=== PATIENT | female | born 1955 | race Caucasian/White ===

== ENCOUNTER 2017-02-27 02:08 | Emergency (ER) | payer OTHER ==
[~2017-02-27] VITALS: Ht 160 cm; Wt 84.8 kg
--- OUTSIDE RECORDS SUMMARY | 2017-02-27 02:33 | XMS REPORT | Continuity of Care Document ---
Author Author [facility] Organization [facility] Address Unknown Phone Unavailable Allergies Medications Problems Date Dx Coded Attending Type Code Diagnosis Diagnosed By 05/10/2014 Michelle Odom MD 845.00 05/10/2014 Michelle Odom MD 924.11 05/10/2014 Michelle Odom MD E849.8 05/10/2014 Michelle Odom MD E885.9 12/21/2014 Michelle Odom MD V72.69 01/11/2015 Quentin Yusuf MD 793.89 01/11/2015 Quentin Yusuf MD V76.12 01/13/2015 Quentin Yusuf MD 793.89 01/13/2015 Quentin Yusuf MD V76.12 02/07/2015 Quentin Yusuf MD 793.89 02/07/2015 Quentin Yusuf MD V76.12 02/21/2016 Quentin Yusuf MD Z12.31 ENCNTR SCREEN MAMMOGRAM FOR MALIGNANT NE 02/23/2016 Quentin Yusuf MD Z12.31 ENCNTR SCREEN MAMMOGRAM FOR MALIGNANT NE Procedures Results Encounters ACCT No. Visit Date/Time Discharge Status Pt. Type Provider Facility Loc./Unit Complaint [id number] 02/14/2016 07:52:00 2015 23:59:59 CLS [facility] [id number] 01/03/2015 09:34:00 2014 23:59:59 CLS [facility] [id number] 05/09/2014 10:47:00 2013 16:01:00 DIS Outpatient Michelle Odom MD [facility] [id number] 04/18/2014 10:30:00 2013 23:59:59 CLS Outpatient Michelle Odom MD [facility] [id number] 08/09/2013 13:45:00 2013 23:59:59 CLS Outpatient [id number] 03/24/2013 08:59:00 2012 23:59:59 CLS Outpatient
[2017-02-27] MEDS: ONDANSETRON 4 MG (ZOFRAN) ORAL DISSOLVE TAB SL ONE (02:42)
[2017-02-27] MEDS ORDERED: ADDERALL (02:46)
[2017-02-27] MEDS ORDERED: [UNRECOGNIZED DRUG - OTHER] (02:46)
[2017-02-27] MEDS ORDERED: POTASSIUM (02:46)
[2017-02-27] MEDS ORDERED: MAGNESIUM (02:46)
[2017-02-27] MEDS ORDERED: MULT-974 PO (02:46)
[2017-02-27] MEDS ORDERED: OMG1KC PO (02:46)
[2017-02-27 03:14] LABS: BILIRUBIN,URINE NEGATIVE (NEGATIVE); KETONES,URINE NEGATIVE (NEGATIVE); LEUKOCYTE ESTERASE ,URINE 3+ (NEGATIVE); NITRITE,URINE NEGATIVE (NEGATIVE); PH,URINE 5 (5-9); PROTEIN,URINE NEGATIVE (NEGATIVE); UROBILINOGEN,URINE NORMAL (NORMAL)
[2017-02-27] MEDS: CIPROFLOXACIN 500 MG (CIPRO) TABLET PO ONE (03:32)
[2017-02-27] MEDS: KETOROLAC 60 MG/2 ML VIAL IM ONE (03:32)
[2017-02-27] MEDS ORDERED: ONDA4TAB8 SL (03:33)
[2017-02-27] MEDS ORDERED: CIPR-225 PO (03:33)
--- NOTE | 2017-02-27 03:34 | ED Back Pain ---
General Chief Complaint: Back Problems Stated Complaint: POSS KIDNEY STONE,LEFT SIDE Nursing Triage Note: PT TO ED 6 W/ C/O LT FLANK BACK PAIN ONSET 0 THIS AM. DENIES INJURY Nursing Sepsis Screen: No Definite Risk Source of Information: Patient Exam Limitations: No Limitations History of Present Illness Time Seen by Provider: 02:14 Initial Comments This 61-year-old woman presents to the emergency room with pain in the left lower back rated as 7/10. She has been nauseated without vomiting. She denies diarrhea or constipation. Denies dysuria or hematuria. No history of renal stones. She did not feel well earlier and then could not sleep tonight due to the pain. She does have a history of kidney stones but states this pain feels somewhat different. Allergies and Home Medications Allergies Coded Allergies: Penicillins (Verified Allergy, Unknown, 02/27/17) Home Medications Ciprofloxacin HCl 500 Mg Tablet, 500 MG PO BID, #14 Prescribed by: CHU RODRIGUEZ on 02/27/17 0333 Multivitamin 1 Each Tablet, 1 EACH PO, (Reported) [place] 3 Polyunsat Fatty Acids 1,000 Mg Cap, 1,000 MG PO, (Reported) Ondansetron 4 Mg Tab.rapdis, 4 MG SL Q4H PRN for NAUSEA/VOMITING-1ST LINE, #10 Prescribed by: CHU RODRGIUEZ on 02/27/17 0333 [Adderall] , (Reported) [Hcg Diet] , (Reported) [Magnesium] , (Reported) [Potassium] , (Reported) Constitutional: no symptoms reported EENTM: no symptoms reported Respiratory: no symptoms reported Cardiovascular: no symptoms reported Gastrointestinal: no symptoms reported Genitourinary: no symptoms reported : No Musculoskeletal: see HPI Skin: no symptoms reported Psychiatric/Neurological: No Symptoms Reported Past Letdgfh-Ndklew-Zttuuq Hx Patient Social History Alcohol Use: Denies Use Recreational Drug Use: No Smoking Status: Never a Smoker Recent Foreign Travel: No Contact w/Someone Who Travel: No Recent Infectious Disease Expo: No Recent Hopitalizations: No Physical Abuse: No Sexual Abuse: No Mistreated: No Fear: No Surgeries History of Surgeries: Yes Surgeries: Section, Hysterectomy, Orthopedic (Anterior cruciate ligament repair) Respiratory History of Respiratory Disorde: No Cardiovascular History of Cardiac Disorders: No Neurological History of Neurological Disord: No Reproductive System : No Genitourinary History of Genitourinary Disor: Yes Genitourinary Disorders: Kidney Stones Gastrointestinal History of Gastrointestinal Di: No Musculoskeletal History of Musculoskeletal Dis: No Endocrine History of Endocrine Disorders: No HEENT History of HEENT Disorders: No Cancer History of Cancer: No Psychosocial History of Psychiatric Problem: No Suicide Risk Score: 0 Integumentary History of Skin or Integumenta: No Blood Transfusions History of Blood Disorders: No Physical Exam Vital Signs Vital Sign - Last 12Hours 02/27/17 02:24 Temp 96.6 Pulse 91 Resp 20 B/P (MAP) 157/80 Pulse Ox 98 O2 Delivery Room Air Capillary Refill : Less Than 3 Seconds General Appearance: No Apparent Distress, WD/WN HEENT: Normal ENT Inspection Neck: Normal Inspection Cardiovascular: Regular Rate, Rhythm, No Edema, No Murmur Respiratory: Lungs Clear, Normal Breath Sounds, No Accessory Muscle Use, No Respiratory Distress Gastrointestinal: Normal Bowel Sounds, Non Tender, Soft Back: Normal Inspection, CVA Tenderness (L), Other (Mild tenderness in the paravertebral muscles on the left near the upper lumbar spine) Extremity: Normal Inspection, No Pedal Edema Neurologic/Psychiatric: Alert, Oriented x3, No Motor/Sensory Deficits, Normal Mood/Affect, commissioning manager II-XII Norm as Tested Skin: Normal Color, Warm/Dry Progress/Results/Core Measures Results/Orders Lab Results Laboratory Tests Test 02/27/17 03:06 Range/Units Urine Color YELLOW Urine Clarity SLIGHTLY CLOUDY Urine pH 5 5-9 Urine Specific [place] 1.020 1.016-1.022 Urine Protein NEGATIVE NEGATIVE Urine Glucose (UA) NEGATIVE NEGATIVE Urine Ketones NEGATIVE NEGATIVE Urine Nitrite NEGATIVE NEGATIVE Urine Bilirubin NEGATIVE NEGATIVE Urine Urobilinogen NORMAL NORMAL MG/DL Urine Leukocyte Esterase 3+ H NEGATIVE Urine RBC (Auto) 1+ H NEGATIVE Urine RBC RARE /HPF Urine WBC 5-10 H /HPF Urine Squamous Epithelial Cells 10-25 H /HPF Urine Crystals NONE /LPF Urine Bacteria MODERATE H /HPF Urine Casts NONE /LPF Urine Mucus MODERATE H /LPF Urine Culture Indicated YES My Orders Orders - CHU ENRIQUEZ MD Ua Culture If Indicated (02/27/17 02:14) Ondansetron Oral Dissolve Tab (Zofran (02/27/17 02:45) Urine Culture (02/27/17 03:06) Ketorolac Injection (Toradol Injection) (02/27/17 03:30) Ciprofloxacin Tablet (Cipro Tablet) (02/27/17 03:30) Medications Given in ED Current Medications Medications Dose Ordered Sig/Vishal Route Start Time Stop Time Status Last Admin Dose Admin Ciprofloxacin 500 mg ONCE ONCE PO 02/27/17 03:30 02/27/17 03:31 DC 02/27/17 03:32 500 MG Ketorolac Tromethamine 60 mg ONCE ONCE IM 02/27/17 03:30 02/27/17 03:31 DC 02/27/17 03:32 60 MG Ondansetron HCl 8 mg ONCE ONCE SL 02/27/17 02:45 02/27/17 02:46 DC 02/27/17 02:42 8 MG Vital Signs/I&O Vital Sign - Last 12Hours 02/27/17 02/27/17 02:24 04:01 Temp 96.6 Pulse 91 82 Resp 20 18 B/P (MAP) 157/80 Pulse Ox 98 99 O2 Delivery Room Air Room Air Blood Pressure Mean: 105 Progress Note : Progress Note Options for working up patient's symptoms were discussed. Patient additionally was unable to produce urine. She was given sublingual Zofran followed by oral water. She was unable to produce urine. Patient preferred to undergo urinalysis before determining if we should proceed with workup for renal stone. Urine showed no blood. Patient therefore did not undergo further workup with imaging and blood work. She was treated with a Toradol injection and antibiotics were started for urinary tract infection. Departure Impression Impression: Primary Impression: Urinary tract infection Qualified Codes: N39.0 - Urinary tract infection, site not specified Additional Impression: Lower back pain Qualified Codes: M54.5 - Low back pain Disposition: 01 HOME, SELF-CARE Condition: Improved Departure-Patient Inst. Decision time for Depature: 03:29 Referrals: NO,LOCAL PHYSICIAN (PCP/Family) Primary Care Physician Patient Instructions: Low Back Pain (DC), Urinary Tract Infections in Adults Add. Discharge Instructions: Drink plenty of clear liquids. You may take ibuprofen up to 600 mg every 6 hours as needed for pain. Add Tylenol (acetaminophen) for additional pain relief as needed. Gentle heat on your back may be helpful as well. Follow-up with your primary care provider in 2 or 3 days to review urine culture results. Return to care if symptoms worsen. Complete your antibiotic as prescribed. Zofran (ondansetron) may be used for nausea and vomiting. All discharge instructions reviewed with patient and/or family. Voiced understanding. Scripts Ciprofloxacin HCl (Cipro) 500 Mg Tablet 500 MG PO BID, #14 TAB Prov: CHU ENRIQUEZ MD 02/27/17 Ondansetron (Zofran Odt) 4 Mg Tab.rapdis 4 MG SL Q4H Y for NAUSEA/VOMITING-1ST LINE, #10 TAB Prov: CHU ENRIQUEZ MD 02/27/17 CHU ENRIQUEZ MD Feb 27, 2017 3:34 am
[2017-02-27 04:01] VITALS: BP 160/85
== END 2017-02-27 04:01 | disposition home or self-care (01) ==
LOC: ER 02:29
DX: N39.0 Urinary tract infection, site not specified (principal); M54.5 Low back pain; Z87.442 Personal history of urinary calculi; Z98.51 Tubal ligation status; Z87.59 Personal history of other complications of pregnancy, childbirth and the puerperium; Z90.710 Acquired absence of both cervix and uterus
CPT/HCPCS: 81000; 87088; 96372; 99284